=== PATIENT | female | born 1970 | race Caucasian/White ===

== ENCOUNTER 2020-01-23 00:14 | Outpatient (CLI) | payer OTHER, SELFPAY ==
[2020-01-23 20:58] LABS: SARS-CoV-2 RNA PCR Negative
== END 2020-01-23 00:15 | disposition home or self-care (01) ==
LOC: ANHCOVIDDT 00:14
PROVIDERS: PCP Internal Medicine; Visit Provider Obstetrics & Gynecology Gynecology
DX: Z01.812 Encounter for preprocedural laboratory examination (principal); Z11.59 Encounter for screening for other viral diseases
CPT/HCPCS: 87635; C9803; U0003

== ENCOUNTER 2020-01-26 01:28 | Day surgery (SDC) | payer OTHER, SELFPAY ==
[2020-01-14 08:42] VITALS: BMI 32.5
--- NOTE | 2020-01-25 16:07 | WPDANESEPP ---
[facility] - Eval Pre Procedure Procedure: Operation Date: 01/26/20 07:30 Proposed Procedures p Laparoscopic Bilateral Salpingo-Oophorectomy - Kizzy Cameron MD Date/Time: 01/25/20 16:07 Pre Op Diagnosis: Personal History of Breast Cancer Patient Data Age: 49 Gender: F Height: 1.63 m Weight: 86.18 kg Allergies Allergy/AdvReac Type Severity Reaction Status Date / Time No Known Allergies Allergy Mild Verified 01/14/20 08:42 Home Medications Medication Instructions Recorded Confirmed Type Vitamin D3 1 tablet PO DAILY 01/14/20 01/14/20 History ascorbic acid (vitamin C) [Vitamin 500 mg PO DAILY 01/14/20 01/14/20 History C] calcium carbonate [Calcium 600] 600 mg PO DAILY 01/14/20 01/14/20 History cyanocobalamin (vitamin B-12) 1,000 mcg PO DAILY 01/14/20 01/14/20 History [Vitamin B-12] ergocalciferol (vitamin D2) 1,250 mcg PO WEEKLY 01/14/20 01/14/20 History [Vitamin D2] magnesium 1 tablet PO DAILY 01/14/20 01/14/20 History multivitamin 1 tablet PO DAILY 01/14/20 01/14/20 History omega 7-hss-rpu-fish oil [Fish Oil] 1 cap PO DAILY 01/14/20 01/14/20 History Patient hx anesthesia problems: none Family hx anesthesia problems: none PMFSH Surgical History Surgical History History of tonsillectomy Family History Family History Other Diabetes mellitus Family history of arthritis Family history of cardiovascular disease Family history of gout Hypertension Social History Social History Smoking status: Never smoker Alcohol intake: current Exam Day of Procedure 01/25/20 16:07
[2020-01-26] VITALS (8 sets, daily range): BP systolic 93–137; BP diastolic 54–76; PULSE 46–73; RESP 12–20; TEMP 36.6–37; O2SAT 96–100
--- NOTE | 2020-01-26 06:39 | WPDANESEPPF ---
Anes - Initial Pre Proc Eval Procedure: Operation Date: 01/26/20 07:30 Proposed Procedures p Laparoscopic Bilateral Salpingo-Oophorectomy - Kizzy Cameron MD Date/Time: 01/26/20 06:39 Surgeon: Kizzy Cameron MD Pre Op Diagnosis: Personal History of Breast Cancer Patient Data Age: 49 Gender: F Height: 5 ft 4 in Weight: 86.18 kg Allergies Allergy/AdvReac Type Severity Reaction Status Date / Time No Known Allergies Allergy Mild Verified 01/14/20 08:42 Home Medications Medication Instructions Recorded Confirmed Type Vitamin D3 1 tablet PO DAILY 01/14/20 01/14/20 History ascorbic acid (vitamin C) [Vitamin 500 mg PO DAILY 01/14/20 01/14/20 History C] calcium carbonate [Calcium 600] 600 mg PO DAILY 01/14/20 01/14/20 History cyanocobalamin (vitamin B-12) 1,000 mcg PO DAILY 01/14/20 01/14/20 History [Vitamin B-12] ergocalciferol (vitamin D2) 1,250 mcg PO WEEKLY 01/14/20 01/14/20 History [Vitamin D2] magnesium 1 tablet PO DAILY 01/14/20 01/14/20 History multivitamin 1 tablet PO DAILY 01/14/20 01/14/20 History omega 2-nmd-pkx-fish oil [Fish Oil] 1 cap PO DAILY 01/14/20 01/14/20 History Patient hx anesthesia problems: none and other (motion sickness) Family hx anesthesia problems: none PMFSH Past Medical History Medical History Breast CA Surgical History Surgical History History of tonsillectomy Family History Family History Other Diabetes mellitus Family history of arthritis Family history of cardiovascular disease Family history of gout Hypertension Social History Social History Smoking status: Never smoker Alcohol intake: current Anes - Eval Final PreProcedure Day of Procedure 01/26/20 06:39 Patient weight: obese Heart: regular rate and rhythm Lungs: clear to auscultation Airway: Mallampati scale class II Neurological: alert and oriented Last oral intake: >/= 8 hours ASA classification: III Emergent: no Anesthetic plan: proceed Anesthesia type and monitoring: general ETT and standard monitoring Informed Consent: The patient's anesthetic plan and its attendant risks and benefits were discussed with the patient/family/POA. Questions were solicited and answers provided to the satisfaction of the patient/family/POA.
[2020-01-26] MEDS: SCOPOLAMINE 1.5 MG PATCH TRANSDERM (06:50)
[2020-01-26] MEDS: LACTATED RINGERS 1,000 ML 30 ML IV CONT ×2 (06:55→09:13)
--- NOTE | 2020-01-26 07:04 | PM.HPGS ---
History of Present Illness History of Present Illness Consent: Risks, benefits, and alternatives have been discussed and questions answered. Patient agrees to proceed with procedure. Chief complaint: Personal History of Breast Cancer Narrative: Shelli Hurst is a 49 year old female diagnosed with breast cancer in 2018. Oncology wants her to have her ovaries removed. Reviewed procedure and discussed also removing tubes. Risks of infection, bleeding, injury to internal organs, anesthesia, DVT, and symptoms from BSO. Patient voiced understanding and agrees to proceed. [facility] Past Medical History Medical History (Updated 01/26/20 @ 07:10 by Kizzy Cameron MD) Breast CA Migraines (normal spontaneous vaginal delivery) Status post hysteroscopy Surgical History Surgical History (Updated 01/26/20 @ 07:10 by Kizzy Cameron MD) History of tonsillectomy S/P laparoscopic cholecystectomy Status post left breast lumpectomy Family History Family History Other Diabetes mellitus Family history of arthritis Family history of cardiovascular disease Family history of gout Hypertension Social History Social History Smoking status: Never smoker Alcohol intake: current Meds Home Medications and Allergies Home Medications Medication Instructions Recorded Confirmed Type Vitamin D3 1 tablet PO DAILY 01/14/20 01/14/20 History ascorbic acid (vitamin C) [Vitamin 500 mg PO DAILY 01/14/20 01/14/20 History C] calcium carbonate [Calcium 600] 600 mg PO DAILY 01/14/20 01/14/20 History cyanocobalamin (vitamin B-12) 1,000 mcg PO DAILY 01/14/20 01/14/20 History [Vitamin B-12] ergocalciferol (vitamin D2) 1,250 mcg PO WEEKLY 01/14/20 01/14/20 History [Vitamin D2] magnesium 1 tablet PO DAILY 01/14/20 01/14/20 History multivitamin 1 tablet PO DAILY 01/14/20 01/14/20 History omega 8-mke-ytf-fish oil [Fish Oil] 1 cap PO DAILY 01/14/20 01/14/20 History Allergies Allergy/AdvReac Type Severity Reaction Status Date / Time No Known Allergies Allergy Mild Verified 01/14/20 08:42 Exam Resp: Auscultation: clear to auscultation bilaterally Cardio: Rate: regular rate Rhythm: regular rhythm : External Female Exam: normal external appearance Speculum Exam - Vagina: normal appearance of the vagina Speculum Exam - Cervix: normal appearance of the cervix Bimanual exam- vagina & uterus: uterine size normal Bimanual Exam- Adnexa, other: normal adnexae Assessment and Plan Assessment and plan (1) Breast CA: Code(s): C50.919 - Malignant neoplasm of unspecified site of unspecified female breast Status: Acute Assessment and Plan: Plan to proceed with laparoscopic BSO
[2020-01-26] MEDS: KETOROLAC 30 MG/ML VIAL (*BKC) IV PUSH (08:43)
--- NOTE | 2020-01-26 08:46 | SUR.PREOP ---
0740-PT INFORMED ROOM DELAY, UNDETERMINED AMOUNT R/T CLIMATE CONTROL. 0815-SPOKE WITH -PT NOW TO OR R/T ROOM CLIMATE CONTROL.
--- NOTE | 2020-01-26 09:04 | SUR.OPER ---
EBL:10cc
--- NOTE | 2020-01-26 09:09 | PM.OP ---
Procedure Note - Brief Procedure Note - Brief Date of procedure: 01/26/20 Pre-op diagnosis: Personal History of Breast Cancer Post-op diagnosis: same Procedure performed: laparoscopic BSO Anesthesia: GETA Surgeon: Kizzy Cameron MD Estimated blood loss (mL): 5 Drains: No Packing: No Pathology: yes (tubes and ovaries) Complications: No immediate complications Condition: stable Disposition: PACU Findings: normal appearing tubes, ovaries, and uterus
--- NOTE | 2020-01-26 13:03 | OP_ITS ---
DATE OF PROCEDURE: 01/26/2020 PREOPERATIVE DIAGNOSIS: History of breast cancer. POSTOPERATIVE DIAGNOSIS: History of breast cancer. PROCEDURE: Laparoscopic bilateral salpingo-oophorectomy. ANESTHESIA: General with ET tube. FINDINGS: Normal-appearing tubes, ovaries, and uterus. The uterus sounds to 7 cm. ESTIMATED BLOOD LOSS: 5 cc. PATHOLOGY: Bilateral tubes and ovaries. DESCRIPTION OF PROCEDURE: The patient was taken to the operating room, placed under anesthesia, prepped and draped in the usual sterile fashion. Bivalved speculum was placed in the vagina. Cervix was grasped on the anterior lip with a tenaculum and the uterus was sounded to 7 cm. The 6 cm Cori was placed, the balloon popped and decision was made to use the Forgan manipulator instead, speculum was removed. Bladder was previously drained by the OR staff. The attention was turned to the abdomen. A horizontal skin incision was made at the base of the umbilicus through the prior incision. The abdomen was tented. The Veress needle was placed. Opening patient pressure was 3 mmHg. Pneumoperitoneum was obtained to a patient pressure of 15. The Veress needle was removed. The 5 mm Optiview trocar was placed. Intraabdominal placement was confirmed with the laparoscope. The patient was placed in Trendelenburg. A 5 mm skin incision was made 2 cm above the symphysis pubis in the midline. The 5 mm trocar was placed under direct visualization. The perineum is very tenting and hook scissors were used to open the perineum. The trocar was then able to be manipulated so the sleeve was through the perineum. The blunt probe was used to investigate the pelvis with the above-stated findings. The 12 mm incision was made in the left lower quadrant. Trocar was placed under direct visualization. The atraumatic graspers were used to grasp the left ovary and tube at the hilum. The Endo RICHARD stapler was placed and using 3 separate firings, the tube and ovary were excised. There is bleeding at several points along the staple line that were cauterized using the Mersilene scissors. The mass portion of the staple line did not cut and Mersilene scissors were used to cut between the staple line to excise the full specimen. The specimen was placed above the bladder flap on the left. Attention was turned to the right tube and ovary. The right tube and ovary are grasped with atraumatic grasper at the hilum. The right tube and ovary are excised using the Endo RICHARD stapler and 2 firings. Good hemostasis was noted along the staple line. The endobag was placed through the 12 mm trocar. Both tubes and ovaries were placed within the bag. The trocar and bag were removed in 1 piece without extending the incision. The pneumoperitoneum was reduced. Trocars are removed, the 12 mm port. Fascia was grasped anteriorly and posteriorly with the [place]. A single suture of 0 Vicryl on a UR6 needle was placed. Good closure of the fascia was noted. Skin incisions were closed using 4-0 nylon in an interrupted fashion. All instruments were removed vaginally. The patient was awakened from anesthesia and taken to Recovery in stable condition. Basilio I MT: Jorge
== END 2020-01-26 11:15 | disposition home or self-care (01) ==
PROVIDERS: PCP Internal Medicine; Visit Provider Obstetrics & Gynecology Gynecology
PROC: (CPT 49320; principal; 2020-01-26 08:30)
DX: Z40.02 Encounter for prophylactic removal of ovary(s) (principal); Z85.3 Personal history of malignant neoplasm of breast; N73.6 Female pelvic peritoneal adhesions (postinfective)
CPT/HCPCS: 58661; 88305; A9270; J1100; J1170; J1885; J2250; J2405; J2710; J3010; J7120

== ENCOUNTER 2020-11-23 08:54 | Outpatient (CLI) | payer OTHER, SELFPAY | END 2020-11-23 08:55 | disposition home or self-care (01) | LOC: ANHCOVIDVC 08:54 | PROVIDERS: PCP Internal Medicine | DX: Z23 Encounter for immunization (principal) | CPT/HCPCS: 0001A; 91300 ==

== ENCOUNTER 2020-12-14 08:58 | Outpatient (CLI) | payer OTHER, SELFPAY | END 2020-12-14 08:59 | LOC: ANHCOVIDVC 08:59 | PROVIDERS: PCP Internal Medicine | DX: Z23 Encounter for immunization (principal) | CPT/HCPCS: 0002A; 91300 ==